=== PATIENT | male | born 1985 | race Caucasian/White ===

== ENCOUNTER 2017-07-01 15:42 | Emergency (ER) | payer OTHER ==
[~2017-07-01] VITALS: Ht 190.5 cm; Wt 102.1 kg
[2017-07-01 16:32] VITALS: BP 128/79
[2017-07-01] MEDS ORDERED: PROMETHAZINE 25 MG in IV NORMAL SALINE 50ML 50 ML IV PRN (17:30)
--- NOTE | 2017-07-01 17:36 | PHYS DOC ---
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 Patient states that he has a 6-month-old child at home who has had nausea vomiting and diarrhea for the past several days. They've been to the emergency department with the child twice with diagnosis of viral gastroenteritis. Patient states that he awoke this morning around 4 AM with generalized abdominal discomfort and nausea, states he's had at least 10 episodes of nonbloody emesis and greater than 10 episodes of nonbloody diarrhea throughout the day. He had a 25 mg Phenergan left over from a prior surgery that he took around noon today without any relief. He's had by mouth intolerance and currently is feeling lightheaded and a global headache with dry mouth symptoms are worse when standing and relieved somewhat with flat. Patient states he's been dehydrated in the past and feels severely dehydrated. He denies any focal abdominal pain complaints, he's had some chills and sweats or body aches and what he feels has been low-grade fevers. When given the option of antibiotics and oral hydration at home for nausea medication and fluids here patient requests treatment here. He is driving but will call someone for a ride home after receiving Phenergan. Timing/Duration: constant Severity: severe Modifying Factors: worse with eating Associated Symptoms: nausea/vomiting (MICHELLE HURST DO) Allergies: Coded Allergies: acetaminophen (Verified Allergy, itching, 09/04/13) oxycodone HCl (Verified Allergy, itching, 09/04/13) Past Medical History Medical History: no pertinent history Surgical History: noncontributory (MICHELLE HURST DO) Social History Smoker: non-smoker Alcohol: none Drugs: none (MICHELLE HURST DO) Review of Systems Constitutional: see HPI Respiratory: denies cough, denies shortness of breath Cardiovascular: denies chest pain, denies palpitations Gastrointestinal: see HPI Genitourinary: denies dysuria, denies frequency, denies hematuria Musculoskeletal: see HPI, denies back pain, denies neck pain Psychiatric/Neurological: headache, denies numbness, denies paresthesia, denies weakness (MICHELLE HURST DO) Physical Exam General Appearance: moderate distress (nauseous, clinically dry) Eyes: bilateral eye normal inspection, bilateral eye PERRL, bilateral eye EOMI Ear, Nose, Throat: hearing grossly normal, normal ENT inspection (very dry mucous membranes), normal pharynx Neck: non-tender, supple Respiratory: normal breath sounds, no respiratory distress Cardiovascular: normal peripheral pulses, regular rate, rhythm Gastrointestinal: soft (nondistended, generalized abdominal muscle tenderness negative McBurney negative Diaz bowel sounds hyperactive no palpable masses) Back: no CVA tenderness, no vertebral tenderness Extremities: non-tender, normal inspection Neurologic/Psychiatric: flower cutter II-XII nml as tested, no motor/sensory deficits, alert, normal mood/affect, oriented x 3 Skin: warm/dry (poor skin turgor) (MICHELLE HURST DO) Orders, Labs, Meds Zofran 4 mg, Pepcid 20 mg, and a normal saline 1 L IV bolus with 25 mg promethazine piggyback ordered in the emergency department. An i-STAT basic metabolic panel ordered to evaluate electrolytes. 1735: IV is not yet established and no medications fluids yet given. Patient will have the ED duration beyond 1800 shift change, patient will be signed out to Dr. Samaniego at 1800 shift change. See her documentation for results and patient disposition. (MICHELLE HURST DO) Orders, Labs, Meds Assumed care from Dr. Hurst. The ED had been overwhelmed so the patient did not receive any medications until I assumed care. He received meds including 2L bolus of fluids, electrolytes WNL on BMP. Roland better, no vomiting here. Requested discharge home. Recommend rest, hydration, zofran for nausea. Follow up with PCP if not improving in 2-3 days. Come back for high fever, severe pain, uncontrolled vomiting, any otherwise worsening condition. Discharged home in stable & improved condition. Christine Solomon MD (CHRISTINE SOLOMON MD) MICHELLE HURST DO Jul 01, 2017 17:36 CHRISTINE SOLOMON MD Jul 01, 2017 20:57
[2017-07-01] MEDS ORDERED: ONDANSETRON PF 4 MG/2 ML VIAL. IV ONE (17:45)
[2017-07-01] MEDS ORDERED: IV NORMAL SALINE 1,000ML 1,000 ML IV SCH (17:45)
[2017-07-01] MEDS ORDERED: FAMOTIDINE 20 MG/2 ML VIAL IVP ONE (17:45)
[2017-07-01] MEDS ORDERED: IV NORMAL SALINE 1,000ML 1,000 ML IV ONE (19:15)
[2017-07-01 20:11] LABS: CALCIUM 8.8 mg/dL (8.5-10.1); CREATININE 1.1 mg/dL (0.7-1.3); GFR 78.1; POTASSIUM 3.7 mmol/L (3.5-5.1)
[2017-07-01] MEDS ORDERED: KETOROLAC 30 MG/ML VIAL. IV ONE (20:15)
[2017-07-01] MEDS ORDERED: IV RINGERS SOLUTION,LACTATED 1,000 ML IV ONE (20:30)
[2017-07-01] MEDS ORDERED: ONDA4TAB10 SL (20:59)
== END 2017-07-01 21:11 | disposition home or self-care (01) ==
LOC: ER 15:42
DX: E86.0 Dehydration (principal); R11.2 Nausea with vomiting, unspecified; R10.84 Generalized abdominal pain; R19.7 Diarrhea, unspecified; R51 Headache; Z88.6 Allergy status to analgesic agent; Z88.5 Allergy status to narcotic agent
CPT/HCPCS: 36415; 80048; 96361; 96374; 96375; 99284; J1885; J2405; J7120; S0028; J7030

== ENCOUNTER 2017-08-19 19:29 | Emergency (ER) | payer OTHER ==
[~2017-08-19] VITALS: Ht 190.5 cm; Wt 109.7 kg
[~2017-08-19 19:29] MED LIST: ONDA4TAB10 SL
[2017-08-19] MEDS ORDERED: KETOROLAC 30 MG/ML VIAL. IV ONE (20:00)
[2017-08-19 20:11] LABS: BASO # 0.1 x10^3/uL (0.0-0.2); BASO % 1 % (0-3); EOS # 0.1 x10^3/uL (0.0-0.7); EOS % 1 % (0-3); HEMATOCRIT 47.1 % (39.0-53.0); HEMOGLOBIN 16.4 g/dL (13.0-17.5); LYMPH % 36 % (24-48); MEAN CORPUSCULAR HEMOGLOBIN 31 pg (25-35); MEAN CORPUSCULAR HGB CONC 35 g/dL (31-37); MEAN CORPUSCULAR VOLUME 89 fL (79-100); MONO # 0.8 x10^3/uL (0.0-1.1); MONO % 10 % (0-9); NEUT # 4.4 x10^3uL (1.8-7.7); NEUT % 53 % (31-73); PLATELET COUNT 195 x10^3/uL (140-400); RED BLOOD COUNT 5.32 x10^6/uL (4.30-5.70); RED CELL DISTRIBUTION WIDTH 12.7 % (11.5-14.5); WHITE BLOOD COUNT 8.4 x10^3/uL (4.0-11.0)
[2017-08-19 20:18] LABS: ALBUMIN 4.1 g/dL (3.4-5.0); ALBUMIN/GLOBULIN RATIO 1.2 (1.0-1.7); CALCIUM 8.9 mg/dL (8.5-10.1); CREATININE 1.4 mg/dL (0.7-1.3); GFR 59.1; TOTAL BILIRUBIN 0.4 mg/dL (0.2-1.0); TOTAL PROTEIN 7.5 g/dL (6.4-8.2)
[2017-08-19 20:33] LABS: BILIRUBIN,URINE NEG (NEG); CLARITY,URINE CLEAR; COLOR,URINE YELLOW; GLUCOSE,URINE NEG (NEG)
[2017-08-19 20:34] LABS: BACTERIA,URINE 0 /HPF (0-FEW); NITRITE,URINE NEG (NEG); RBC,URINE OCC /HPF (0-2); SQUAMOUS EPITHELIAL CELL,UR FEW /LPF; UROBILINOGEN,URINE 0.2 mg/dL (0.2 mg/dL); WBC,URINE OCC /HPF (0-4)
--- NOTE | 2017-08-19 22:53 | RAD ---
Complete abdomen ultrasound HISTORY: Right upper quadrant abdominal pain. FINDINGS: Bowel gas shadowing limits visualization of the majority of the pancreas, aorta and IVC. Visualized segments of the mid to distal aorta and hepatic IVC are normal. Normal liver echogenicity isoechoic to renal parenchyma. No liver masses documented. Upper segments of the liver poorly visualized due to rib shadowing. Normal directional blood flow the portal vein. Gallbladder filled with gallstones with wall echo shadow sign, gallbladder wall thickening measuring 4 mm no pericholecystic fluid or sonographic Diaz sign documented. No biliary ductal dilation common bile duct diameter is 4 mm. Right renal length 10.8 cm. Left renal length 12.3 cm. No renal mass or hydronephrosis or renal calculus documented. Spleen length 14.2 cm. IMPRESSION: 1. Cholelithiasis and mild gallbladder wall thickening, could be indicative of mild inflammation from cholecystitis. 2. Mild splenomegaly likely present spleen length 14.2 cm. Electronically signed by: Ashu Holt MD (08/19/2017 10:49 PM) [facility]
[2017-08-19] MEDS: MORPHINE SULFATE 4 MG/ML DISP.SYRIN. IV/SQ PRN (23:13)
[2017-08-20] MEDS ORDERED: PIPERACILLIN/TAZOBACTAM 4.5 GM in IV NORMAL SALINE 50ML 50 ML IV ONE (00:15)
[2017-08-20] MEDS ORDERED: IV NORMAL SALINE 50ML 50 ML ONE (00:52)
[2017-08-20] MEDS ORDERED: PIPERACILLIN/TAZOBACTAM 4.5 GM VIAL IV ONE (00:52)
[2017-08-20] MEDS: MORPHINE SULFATE 4 MG/ML DISP.SYRIN. IV/SQ PRN (00:54)
[2017-08-20 01:31] VITALS: BP 131/69
--- NOTE | 2017-08-20 01:55 | PHYS DOC ---
Past History Past Medical History: GERD Past Surgical History: Other Smoking: Non-smoker Alcohol Use: Occasionally Drug Use: None Adult General Chief Complaint Chief Complaint: ABDOMINAL PAIN HPI HPI Patient is a 32 year old male who presents with abdominal pain. The patient reports right upper quadrant pain since this morning. Not worse with eating, but somewhat worse with movement. Denies fevers or chills, nausea or vomiting, diarrhea or constipation, dysuria or hematuria. Denies previous history of similar symptoms. Denies abdominal surgeries. Previously healthy, history of GERD. Reports occasional social alcohol consumption. 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 Review of Systems Review of Systems Constitutional: Denies fever or chills Eyes: Denies change in visual acuity HENT: Denies nasal congestion or sore throat Respiratory: Denies cough or shortness of breath Cardiovascular: Denies chest pain or edema GI: Reports abdominal pain, denies nausea, vomiting, or diarrhea : Denies dysuria or hematuria Musculoskeletal: Denies back pain or joint pain Integument: Denies rash or skin lesions Neurologic: Denies headache, focal weakness or sensory changes All other systems were reviewed and found to be within normal limits, except as documented in this note. Current Medications Current Medications Current Medications Medications (Trade) Dose Ordered Sig/Madhu Start Time Stop Time Status Last Admin Dose Admin Ketorolac Tromethamine (Toradol) 30 mg 1X ONCE 08/19/17 20:00 08/19/17 20:01 DC 08/19/17 20:00 30 MG Morphine Sulfate (Morphine 4mg Syringe) 4 mg PRN Q15MIN PRN 08/19/17 23:15 08/20/17 23:14 08/20/17 00:54 4 MG Piperacillin Sod/ Tazobactam Sod (Zosyn) 4.5 gm STK-MED ONCE 08/20/17 00:52 08/20/17 00:53 DC Piperacillin Sod/ Tazobactam Sod 4.5 gm/Sodium Chloride 50 ml @ 100 mls/hr 1X ONCE 08/20/17 00:15 08/20/17 00:44 DC 08/20/17 00:55 100 MLS/HR Sodium Chloride 1,000 ml @ 1,000 mls/hr 1X ONCE 08/20/17 02:00 08/20/17 02:59 Allergies Allergies Allergies Coded Allergies Type Severity Reaction Last Updated Verified acetaminophen Allergy itching 09/04/13 Yes oxycodone HCl Allergy itching 09/04/13 Yes Physical Exam Physical Exam Constitutional: Well developed, well nourished, no acute distress, non-toxic appearance. HENT: Normocephalic, atraumatic, bilateral external ears normal, oropharynx moist, nose normal. Eyes: PERRLA, EOMI, conjunctiva normal, no discharge. Neck: supple, no stridor. Cardiovascular: RRR, no murmurs, no edema. Lungs & Thorax: LCTAB, no wheezing, no respiratory distress. Abdomen: soft, right upper quadrant tenderness with voluntary guarding, no rebound tenderness, no masses or pulsatile masses, nondistended. Skin: Warm, dry, no erythema, no rash. Back: No CVA tenderness. Extremities: No tenderness, no edema. Neurologic: Alert and oriented X 3, no focal deficits noted. Psychologic: Affect normal, judgement normal, mood normal. Current Patient Data Vital Signs Vital Signs Date Time Temp Pulse Resp B/P (MAP) Pulse Ox O2 Delivery O2 Flow Rate FiO2 08/19/17 19:30 97.7 80 16 98 Room Air Lab Results Laboratory Tests Test 08/19/17 19:35 08/19/17 19:50 Urine Collection Type Unknown Urine Color Yellow Urine Clarity Clear Urine pH 7.0 Urine Specific [place] 1.015 Urine Protein Neg (NEG-TRACE) Urine Glucose (UA) Neg mg/dL (NEG) Urine Ketones (Stick) Neg mg/dL (NEG) Urine Blood Neg (NEG) Urine Nitrite Neg (NEG) Urine Bilirubin Neg (NEG) Urine Urobilinogen Dipstick 0.2 mg/dL (0.2 mg/dL) Urine Leukocyte Esterase Neg (NEG) Urine RBC Occ /HPF (0-2) Urine WBC Occ /HPF (0-4) Urine Squamous Epithelial Cells Few /LPF Urine Bacteria 0 /HPF (0-FEW) White Blood Count 8.4 x10^3/uL (4.0-11.0) Red Blood Count 5.32 x10^6/uL (4.30-5.70) Hemoglobin 16.4 g/dL (13.0-17.5) Hematocrit 47.1 % (39.0-53.0) Mean Corpuscular Volume 89 fL (79-100) Mean Corpuscular Hemoglobin 31 pg (25-35) Mean Corpuscular Hemoglobin Concent 35 g/dL (31-37) Red Cell Distribution Width 12.7 % (11.5-14.5) Platelet Count 195 x10^3/uL (140-400) Neutrophils (%) (Auto) 53 % (31-73) Lymphocytes (%) (Auto) 36 % (24-48) Monocytes (%) (Auto) 10 % (0-9) H Eosinophils (%) (Auto) 1 % (0-3) Basophils (%) (Auto) 1 % (0-3) Neutrophils # (Auto) 4.4 x10^3uL (1.8-7.7) Lymphocytes # (Auto) 3.0 x10^3/uL (1.0-4.8) Monocytes # (Auto) 0.8 x10^3/uL (0.0-1.1) Eosinophils # (Auto) 0.1 x10^3/uL (0.0-0.7) Basophils # (Auto) 0.1 x10^3/uL (0.0-0.2) Sodium Level 142 mmol/L (136-145) Potassium Level 4.0 mmol/L (3.5-5.1) Chloride Level 106 mmol/L (98-107) Carbon Dioxide Level 26 mmol/L (21-32) Anion Gap 10 (6-14) Blood Urea Nitrogen 12 mg/dL (8-26) Creatinine 1.4 mg/dL (0.7-1.3) H Estimated GFR (Cockcroft-Gault) 59.1 BUN/Creatinine Ratio 9 (6-20) Glucose Level 98 mg/dL (70-99) Calcium Level 8.9 mg/dL (8.5-10.1) Total Bilirubin 0.4 mg/dL (0.2-1.0) Aspartate Amino Transferase (AST) 35 U/L (15-37) Alanine Aminotransferase (ALT) 88 U/L (16-63) H Alkaline Phosphatase 60 U/L (46-116) Total Protein 7.5 g/dL (6.4-8.2) Albumin 4.1 g/dL (3.4-5.0) Albumin/Globulin Ratio 1.2 (1.0-1.7) Lipase 145 U/L (73-393) EKG EKG [] Radiology/Procedures Radiology/Procedures PROCEDURE: ABDOMEN COMPLETE Complete abdomen ultrasound HISTORY: Right upper quadrant abdominal pain. FINDINGS: Bowel gas shadowing limits visualization of the majority of the pancreas, aorta and IVC. Visualized segments of the mid to distal aorta and hepatic IVC are normal. Normal liver echogenicity isoechoic to renal parenchyma. No liver masses documented. Upper segments of the liver poorly visualized due to rib shadowing. Normal directional blood flow the portal vein. Gallbladder filled with gallstones with wall echo shadow sign, gallbladder wall thickening measuring 4 mm no pericholecystic fluid or sonographic Diaz sign documented. No biliary ductal dilation common bile duct diameter is 4 mm. Right renal length 10.8 cm. Left renal length 12.3 cm. No renal mass or hydronephrosis or renal calculus documented. Spleen length 14.2 cm. IMPRESSION: 1. Cholelithiasis and mild gallbladder wall thickening, could be indicative of mild inflammation from cholecystitis. 2. Mild splenomegaly likely present spleen length 14.2 cm. Electronically signed by: Ashu Holt MD (08/19/2017 10:49 PM) [facility] DICTATED AND SIGNED BY: ASHU HOLT MD DATE: 08/19/17 2247[] Course & Med Decision Making Course & Med Decision Making Pertinent Labs and Imaging studies reviewed. (See chart for details) The patient presents with right upper quadrant abdominal pain. Gave pain medication. Obtained labs and UA. No significant abnormality. Obtained ultrasound of the right upper quadrant which shows likely acute cholecystitis. Patient is afebrile, normal white blood cell count, normal left LFTs, normal lipase. Recommend transfer to [facility] for cholecystectomy. Patient agrees with plan of care. Gave Zosyn here. Consulted with Dr. Avila of general surgery at [place] who agrees with plan. Discussed with Dr. Dickson hospitalist at [facility] who agrees to accept for transfer and admission. Patient to be transferred by EMS. He is in stable condition at time of transfer. [] Dragon Disclaimer Dragon Disclaimer This electronic medical record was generated, in whole or in part, using a voice recognition dictation system. Departure Departure: Impression: Primary Impression: Acute cholecystitis Disposition: XFER OTHER Condition: STABLE FAN WAGNER MD Aug 20, 2017 01:55
[2017-08-20] MEDS ORDERED: IV NORMAL SALINE 1,000ML 1,000 ML IV ONE (02:00)
== END 2017-08-20 02:02 | disposition short-term general hospital (02) ==
LOC: ER 19:29
DX: K81.0 Acute cholecystitis (principal); K21.9 Gastro-esophageal reflux disease without esophagitis; Z88.5 Allergy status to narcotic agent
CPT/HCPCS: 36415; 76700; 80053; 81001; 83690; 85025; 96365; 96375; 99285; J1885; J2270; J2543; J7030